=== PATIENT | male | born 1960 | race Hispanic/Latino ===

== ENCOUNTER 2022-02-12 15:12 | Inpatient (IN) | payer BC ==
[2022-02-12 15:51] LABS: #Basophils 0.1 thou/uL (0.0-0.2); #Eosinphils 0.1 thou/uL (0.0-0.7); #Lymphocytes 3.4 thou/uL (1.20-3.40); #Monocytes 0.7 thou/uL (0.11-0.59); #Neutrophils 3.3 thou/uL (1.40-6.50); %Lymphocytes 45.2 % (21.0-51.0); %Monocytes 8.7 % (0.0-10.0); %Neutrophils 44.1 % (42.0-75.0); Hemoglobin 16.8 g/dL (14.0-18.0); Mean Corpuscular HGB CONC 34.9 g/dL (32.0-36.0); Mean Corpuscular Hemoglobin 31.7 pg (27.0-31.0); Mean Corpuscular Volume 90.8 fL (78.0-98.0); Mean Platelet Volume 8.2 fL (7.4-10.4); Platelet Count 195 thou/uL (130-400); RBC Distribution Width 12.1 % (11.5-14.5); Red Blood Cell (RBC) Count 5.31 mill/uL (4.70-6.10); White Blood Cell (WBC) Count 7.5 thou/uL (4.8-10.8)
[2022-02-12 16:05] LABS: ALT (SGPT) 47 U/L (8-55); AST (SGOT) 31 U/L (5-34); Albumin 4.6 g/dL (3.5-5.0); Alkaline Phosphatase 91 U/L (40-110); Anion Gap 15 mmol/L (10-20); BUN (Urea Nitrogen) 21 mg/dL (8.4-25.7); Bilirubin, Total 1.3 mg/dL (0.2-1.2); CK (CPK) 152 U/L (30-200); Calc. Creatinine Clearance 0 mL/min (70-130); Calcium 8.9 mg/dL (7.8-10.44); Carbon Dioxide 22 mmol/L (22-29); Chloride 106 mmol/L (98-107); Globulin 3.6 g/dL (2.4-3.5); Glucose 99 mg/dL (70-105); Lipase 41 U/L (8-78); Potassium 4.2 mmol/L (3.5-5.1); Protein, Total 8.2 g/dL (6.0-8.3); Sodium 139 mmol/L (136-145)
[2022-02-12] MEDS ORDERED: Aspirin Chewable 81 MG TAB ONE (17:12)
[2022-02-12 18:41] LABS: Bilirubin Negative (Negative); Blood, Urine Negative (Negative); Clarity Clear (Clear); Glucose, Urine (Dipstick) Normal (Negative); Ketone, Urine Negative (Negative); Leukocyte Negative Leu/uL (Negative); Nitrite Negative (Negative); Protein, Urine (Dipstick) Negative (Neg-Trace); Specific Gravity, Urine 1.023 (1.002-1.036); Urobilinogen Normal mg/dL (Less than 2)
[2022-02-12 20:30] VITALS: BMI 36.5
[2022-02-12] MEDS ORDERED: Acetaminophen 325 MG TAB PO PRN (22:45)
[2022-02-12] MEDS ORDERED: hydrALAZINE 20 MG/ML VIAL SLOW IVP PRN (22:45)
[2022-02-12] MEDS ORDERED: Ondansetron PF 4 MG/2 ML Vial IVP PRN (22:45)
[2022-02-12] MEDS ORDERED: Labetalol HCl 100 MG/20 ML VIAL SLOW IVP PRN (22:45)
[2022-02-12] MEDS ORDERED: Atorvastatin Calcium 20 MG TAB PO SCH (23:00)
[2022-02-13 05:10] LABS: #Basophils 0.1 thou/uL (0.0-0.2); #Eosinphils 0.1 thou/uL (0.0-0.7); #Lymphocytes 3.2 thou/uL (1.20-3.40); #Monocytes 0.7 thou/uL (0.11-0.59); #Neutrophils 2.5 thou/uL (1.40-6.50); %Basophils 1.2 % (0.0-1.0); %Lymphocytes 48.4 % (21.0-51.0); %Monocytes 10.7 % (0.0-10.0); %Neutrophils 37.8 % (42.0-75.0); Hemoglobin 14.5 g/dL (14.0-18.0); Mean Corpuscular HGB CONC 34.5 g/dL (32.0-36.0); Mean Corpuscular Hemoglobin 31.5 pg (27.0-31.0); Mean Corpuscular Volume 91.1 fL (78.0-98.0); Mean Platelet Volume 7.8 fL (7.4-10.4); Platelet Count 168 thou/uL (130-400); RBC Distribution Width 12.2 % (11.5-14.5); Red Blood Cell (RBC) Count 4.61 mill/uL (4.70-6.10); White Blood Cell (WBC) Count 6.7 thou/uL (4.8-10.8)
[2022-02-13 05:13] LABS: Hemoglobin A1c 5.5 % (4.0-6.0)
[2022-02-13 05:25] LABS: Anion Gap 13 mmol/L (10-20); BUN (Urea Nitrogen) 16 mg/dL (8.4-25.7); Calc. Creatinine Clearance 124 mL/min (70-130); Calcium 8.4 mg/dL (7.8-10.44); Carbon Dioxide 23 mmol/L (22-29); Cardiac Risk 6.8 (Less than 4.5); Chloride 108 mmol/L (98-107); Cholesterol 224 mg/dl (< 200 Desired); Glucose 91 mg/dL (70-105); HDL Cholesterol 33 mg/dL (>60 Neg Risk); LDL Cholesterol, Calculated 144 mg/dL; Potassium 4.1 mmol/L (3.5-5.1); Sodium 140 mmol/L (136-145); Triglycerides 234 mg/dL (Less than 150)
[2022-02-13] MEDS: Enoxaparin Sodium 40 MG/0.4 ML SYRINGE SC SCH (08:33)
[2022-02-13] MEDS ORDERED: Aspirin Chewable 81 MG TAB PO SCH (09:45)
[2022-02-13] MEDS ORDERED: Iopamidol 370 76% 100 ML VIAL ONE (11:48)
[2022-02-13 11:59] LABS: SARS-CoV-2 PCR by NAA Not Detected (NotDetected)
[2022-02-13] MEDS: Atorvastatin Calcium 40 MG TAB PO SCH (20:34)
[2022-02-13] MEDS ORDERED: Atorvastatin Calcium 20 MG TAB PO SCH (21:00)
[2022-02-14] MEDS ORDERED: traZODone HCl 50 MG TAB PO SCH (00:45)
[2022-02-14 05:20] LABS: #Eosinphils 0.1 thou/uL (0.0-0.7); #Lymphocytes 2.2 thou/uL (1.20-3.40); #Monocytes 0.6 thou/uL (0.11-0.59); #Neutrophils 3.2 thou/uL (1.40-6.50); %Basophils 0.1 % (0.0-1.0); %Eosinophils 1.4 % (0.0-10.0); %Lymphocytes 36.4 % (21.0-51.0); %Monocytes 9.8 % (0.0-10.0); %Neutrophils 52.3 % (42.0-75.0); Mean Corpuscular HGB CONC 34.1 g/dL (32.0-36.0); Mean Corpuscular Hemoglobin 30.9 pg (27.0-31.0); Mean Corpuscular Volume 90.6 fL (78.0-98.0); Mean Platelet Volume 8.2 fL (7.4-10.4); Platelet Count 173 thou/uL (130-400); Red Blood Cell (RBC) Count 4.84 mill/uL (4.70-6.10); White Blood Cell (WBC) Count 6.1 thou/uL (4.8-10.8)
[2022-02-14 05:44] LABS: Anion Gap 13 mmol/L (10-20); BUN (Urea Nitrogen) 13 mg/dL (8.4-25.7); Calc. Creatinine Clearance 133 mL/min (70-130); Calcium 8.7 mg/dL (7.8-10.44); Carbon Dioxide 23 mmol/L (22-29); Chloride 106 mmol/L (98-107); Glucose 102 mg/dL (70-105); Potassium 3.8 mmol/L (3.5-5.1); Sodium 138 mmol/L (136-145)
[2022-02-14] MEDS: Enoxaparin Sodium 40 MG/0.4 ML SYRINGE SC SCH (08:27)
[2022-02-14] MEDS ORDERED: Aspirin Chewable 81 MG TAB PO SCH (09:00)
[2022-02-14] MEDS: Atorvastatin Calcium 40 MG TAB PO SCH (20:55)
[2022-02-14] MEDS: traZODone HCl 50 MG TAB PO SCH (20:55)
[2022-02-15 05:47] LABS: #Basophils 0.1 thou/uL (0.0-0.2); #Eosinphils 0.1 thou/uL (0.0-0.7); #Lymphocytes 3.6 thou/uL (1.20-3.40); #Monocytes 0.8 thou/uL (0.11-0.59); #Neutrophils 2.9 thou/uL (1.40-6.50); %Eosinophils 1.9 % (0.0-10.0); %Lymphocytes 48.3 % (21.0-51.0); %Monocytes 10.1 % (0.0-10.0); %Neutrophils 38.8 % (42.0-75.0); Hemoglobin 15.1 g/dL (14.0-18.0); Mean Corpuscular HGB CONC 33.8 g/dL (32.0-36.0); Mean Corpuscular Hemoglobin 31.3 pg (27.0-31.0); Mean Corpuscular Volume 92.6 fL (78.0-98.0); Mean Platelet Volume 8.1 fL (7.4-10.4); Platelet Count 161 thou/uL (130-400); Red Blood Cell (RBC) Count 4.81 mill/uL (4.70-6.10); White Blood Cell (WBC) Count 7.4 thou/uL (4.8-10.8)
[2022-02-15 06:26] LABS: Anion Gap 13 mmol/L (10-20); BUN (Urea Nitrogen) 15 mg/dL (8.4-25.7); Calc. Creatinine Clearance 94 mL/min (70-130); Calcium 8.5 mg/dL (7.8-10.44); Carbon Dioxide 22 mmol/L (22-29); Chloride 108 mmol/L (98-107); Glucose 95 mg/dL (70-105); Potassium 3.9 mmol/L (3.5-5.1); Sodium 139 mmol/L (136-145)
[2022-02-15] MEDS: Aspirin 325 MG TAB PO SCH (08:46)
[2022-02-15] MEDS: Enoxaparin Sodium 40 MG/0.4 ML SYRINGE SC SCH (08:46)
[2022-02-15] MEDS: Docusate 100 MG CAP PO SCH (21:04)
[2022-02-15] MEDS: Atorvastatin Calcium 40 MG TAB PO SCH (21:05)
[2022-02-15] MEDS: traZODone HCl 50 MG TAB PO SCH (21:05)
[2022-02-16] MEDS: Docusate 100 MG CAP PO SCH ×2 (08:44→20:46)
[2022-02-16] MEDS: Aspirin 325 MG TAB PO SCH (08:44)
[2022-02-16] MEDS: Enoxaparin Sodium 40 MG/0.4 ML SYRINGE SC SCH (08:44)
[2022-02-16] MEDS: Polyethylene Glycol 3350 17 GM Packet PO SCH (08:44)
[2022-02-16] MEDS: Atorvastatin Calcium 40 MG TAB PO SCH (20:45)
[2022-02-16] MEDS: traZODone HCl 50 MG TAB PO SCH (20:46)
[2022-02-17] MEDS: Enoxaparin Sodium 40 MG/0.4 ML SYRINGE SC SCH (09:35)
[2022-02-17] MEDS: Aspirin 325 MG TAB PO SCH (09:36)
[2022-02-17] MEDS: Polyethylene Glycol 3350 17 GM Packet PO SCH (09:37)
[2022-02-17] MEDS: Docusate 100 MG CAP PO SCH ×2 (09:37→20:58)
[2022-02-17] MEDS ORDERED: Loperamide HCl 1 MG/7.5 ML UDCUP PO PRN (17:26)
[2022-02-17] MEDS: Atorvastatin Calcium 40 MG TAB PO SCH (20:57)
[2022-02-17] MEDS: traZODone HCl 50 MG TAB PO SCH (20:58)
[2022-02-17] MEDS: Metoprolol Tartrate 25 MG TAB PO SCH (21:36)
[2022-02-18 05:29] LABS: #Basophils 0.1 thou/uL (0.0-0.2); #Eosinphils 0.2 thou/uL (0.0-0.7); #Lymphocytes 3.3 thou/uL (1.20-3.40); #Monocytes 0.8 thou/uL (0.11-0.59); #Neutrophils 3.3 thou/uL (1.40-6.50); %Basophils 0.9 % (0.0-1.0); %Lymphocytes 43.1 % (21.0-51.0); %Monocytes 10.7 % (0.0-10.0); %Neutrophils 43.4 % (42.0-75.0); Hemoglobin 15.4 g/dL (14.0-18.0); Mean Corpuscular HGB CONC 34.1 g/dL (32.0-36.0); Mean Corpuscular Hemoglobin 31.4 pg (27.0-31.0); Mean Corpuscular Volume 92.2 fL (78.0-98.0); Mean Platelet Volume 8.5 fL (7.4-10.4); Platelet Count 161 thou/uL (130-400); Red Blood Cell (RBC) Count 4.91 mill/uL (4.70-6.10); White Blood Cell (WBC) Count 7.6 thou/uL (4.8-10.8)
[2022-02-18 05:57] LABS: ALT (SGPT) 62 U/L (8-55); AST (SGOT) 35 U/L (5-34); Albumin 4.2 g/dL (3.5-5.0); Alkaline Phosphatase 91 U/L (40-110); Anion Gap 12 mmol/L (10-20); BUN (Urea Nitrogen) 18 mg/dL (8.4-25.7); Bilirubin, Total 1.4 mg/dL (0.2-1.2); Calc. Creatinine Clearance 110 mL/min (70-130); Calcium 8.5 mg/dL (7.8-10.44); Carbon Dioxide 23 mmol/L (22-29); Chloride 107 mmol/L (98-107); Glucose 91 mg/dL (70-105); Magnesium 2.2 mg/dL (1.6-2.6); Potassium 3.6 mmol/L (3.5-5.1); Protein, Total 7.2 g/dL (6.0-8.3); Sodium 138 mmol/L (136-145)
[2022-02-18] MEDS: Polyethylene Glycol 3350 17 GM Packet PO SCH (09:25)
[2022-02-18] MEDS: Enoxaparin Sodium 40 MG/0.4 ML SYRINGE SC SCH (09:25)
[2022-02-18] MEDS: Metoprolol Tartrate 25 MG TAB PO SCH (09:25)
[2022-02-18] MEDS: Docusate 100 MG CAP PO SCH (09:25)
[2022-02-18] MEDS: Aspirin 325 MG TAB PO SCH (09:25)
[2022-02-18 11:46] VITALS: TEMP 97.7
[2022-02-18 15:54] VITALS: BP 132/76
[2022-02-19] MEDS ORDERED: Aspirin 81 mg Enteric Coated Tablet PO SCH (09:00)
== END 2022-02-18 16:45 | DRG 65 ==
LOC: ERS 15:12 → NEURO 17:15 → OBSVTOIN 02-14 09:35
PROVIDERS: ADMIT Internal Medicine; ATTEND Internal Medicine
DX: I63.9 Cerebral infarction, unspecified (principal); R29.701 NIHSS score 1; Z20.822 Contact with and (suspected) exposure to COVID-19; G81.91 Hemiplegia, unspecified affecting right dominant side; K52.1 Toxic gastroenteritis and colitis; E78.5 Hyperlipidemia, unspecified; F17.210 Nicotine dependence, cigarettes, uncomplicated; K11.8 Other diseases of salivary glands; I08.1 Rheumatic disorders of both mitral and tricuspid valves; R20.0 Anesthesia of skin; R29.810 Facial weakness; K59.00 Constipation, unspecified; H53.2 Diplopia; T47.4X5A Adverse effect of other laxatives, initial encounter; Z79.899 Other long term (current) drug therapy; Z82.49 Family history of ischemic heart disease and other diseases of the circulatory system
CPT/HCPCS: 36415; 36416; 70450; 70496; 70498; 70551; 71045; 80048; 80053; 80061; 81003; 82550; 83036; 83690; 83735; 84443; 84484; 85025; 93005; 93306; G0378; J1650; Q9967; U0003; U0005